=== PATIENT | male | born 1935 | race Caucasian/White ===

== ENCOUNTER 2019-12-28 11:21 | Outpatient (CLI) | payer MEDICARE, OTHER, SELFPAY ==
--- NOTE | 2019-12-28 11:25 | CT_ITS ---
WS: [id number] CT ABDOMEN WITH CONTRAST HISTORY: LYMPHOMA Contiguous single phase 5 mm axial imaging performed to the abdomen. Oral contrast has been provided. Coronal and sagittal reformats are submitted. All CT scans at [facility] use at least on e of these dose optimization techniques: automated exposure control; mA and/or kV adjustment per tiffany ent size (includes targeted exams where dose is matched to clinical indication); or iterative reconst ruction. CONTRAST: Visipaque 320; 95 mL IV. DLP: 239.95 mGy.cm COMPARISON: 08/26/2019 and 03/10/2019 Lower thorax: Stable appearance of the pleural plaques and pleural-based nodules at the lung bases ov er multiple prior exams. Probably related to prior asbestos exposure. Heart size is normal. Liver: Liver is normal size. Surface of the liver is very mildly irregular. Gallbladder: Normal. Pancreas: Normal. Spleen: Normal size spleen with a few granulomata. Adrenals: Normal. Right kidney: Normal size kidney with multiple cortical cysts. Largest cyst from the upper pole of th e maximum diameter of 2.9 cm. Left kidney: Normal size kidney. Multiple cortical cysts with the largest in the upper pole measuring 2.4 cm. Aorta: Moderate atherosclerosis aorta. No aneurysm. GI tract: As visualized there is no GI tract obstruction. Visualized: In the LEFT pelvis contains num erous diverticula. Central mesenteric mass is again identified just to the LEFT of midline and below the pancreas. This mass is slightly lobulated with mild enhancement measuring 4.7 x 3.7 x 2.0 cm. Very slightly decrease d in size since the prior examination. This mass is inseparable from several loops of small bowel but not resulting in obstruction. No new or enlarging masses. Abdominal wall: No hernia. Visualized osseous structures: Unremarkable. CT/CT abdomen w con* [id number] IMPRESSION: 1. Very slight decrease in size of the mesenteric mass in the LEFT abdomen now measuring 4.7 x 3.7 x 2.0 cm. No new or enlarging masses. 2. Bilateral renal cysts. 3. Moderate atherosclerosis aorta. 4. Stable pleural plaques and nodules.
[2019-12-28] MEDS: iohexol 300 mg/mL 50 mL Btl IV (11:52)
[2019-12-28 12:09] LABS: Basophils % 0.1 %; Hematocrit 42.6 % (42.0-52.0); Hemoglobin 13.7 g/dL (11.7-16.6); Lymphocytes # 0.7 10^3/uL (0.8-4.8); Lymphocytes % 7.5 %; Mean Corpuscular HGB Conc 32.2 g/dL (30.0-36.0); Mean Corpuscular Hemoglobin 31.1 pg (28.0-34.0); Mean Corpuscular Volume 96.6 fL (80-94); Mean Platelet Volume 9.8 fL (7.4-10.4); Monocytes # 0.1 10^3/uL (0.2-0.9); Monocytes % 0.9 %; Neutrophils # 8.63 10^3/uL (1.8-7.7); Neutrophils % 91.1 %; Nucleated Red Blood Cells % 0 %; Platelet Count 228 10^3/cmm (130-400); Red Blood Count 4.41 10^6/uL (4.1-5.3); Red Cell Distribution Width 12.6 % (12.1-15.1); White Blood Count 9.5 10^3/uL (4.0-10.0)
[2019-12-28 12:54] LABS: Alanine Aminotransferase 14 U/L (0-41); Albumin Level 4.6 g/dL (3.5-5.2); Alkaline Phosphatase 67 IU/L (40-130); Anion Gap 15.4 (5-19); Aspartate Amino Transferase 23 U/L (0-40); Blood Urea Nitrogen 19 mg/dL (8-23); Calcium 9.8 mg/dL (8.5-10.5); Carbon Dioxide 29 mmol/L (22-29); Chloride 100 mmol/L (98-107); Globulin 2.8 g/dL (1.3-4.6); Glucose 146 mg/dL (65-115); Lactate Dehydrogenase 215 U/L (135-225); Osmolality Calculated 295 mOsm/kg (285-295); Potassium 4.4 mmol/L (3.5-5.1); Sodium 140 mmol/L (136-145); Total Bilirubin 0.5 mg/dL (0.15-1.2); Total Protein 7.4 g/dL (6.6-8.7)
[2019-12-28] MEDS: iodixanol 320 mg/mL 100mL Btl IV (13:18)
== END 2019-12-28 11:22 | disposition home or self-care (01) ==
LOC: RAD 11:23
PROVIDERS: PCP Nurse Practitioner Family; Visit Provider Internal Medicine Hematology & Oncology
DX: C82.02 Follicular lymphoma grade I, intrathoracic lymph nodes (principal); R19.09 Other intra-abdominal and pelvic swelling, mass and lump; Q61.02 Congenital multiple renal cysts; I70.0 Atherosclerosis of aorta
CPT/HCPCS: 36415; 74160; 80053; 83615; 85025

== ENCOUNTER 2019-12-30 05:47 | Outpatient (CLI) | payer MEDICARE, OTHER, SELFPAY ==
--- NOTE | 2019-12-30 09:52 | ONC FU_ITS ---
Dr. Davis follow up note Patient: Austin Bai Unit #: [id number]: 1935 Dicatated By: Ryan Davis M.D.Date of Visit:Dec 30, 2019 Onc Med Follow-up/Prog Note History of Present Illness: This is an 84-year-old man with relapsed grade 1 follicular lymphoma, kappa subtype, stage IIIA with intermediate FLIPI score. He also has oligoclonal gammopathy of lambda subtype. He was found to have a polyclonal gammopathy with three different lambda restricted M -proteins. On 02/05/11 he had IgA lambda 0.14 g/dL, IgM lambda 0.14 g/dL, and IgG lambda 0.08 g/dL. Free kappa lambda ratio was 0.55. Quantitative IgA was 505, IgG 867 and IgM 230. Clinically he had an orthostatic hypotension, in the absence of clinical symptoms of hypovolemia. Echocardiogram showed no evidence of cardiomegaly or infiltrative cardiomyopathy. He had no bone pain. Metastatic bone survey on 02/19/11 showed possible lytic lesions in the right proximal femur and the left proximal humerus, he has established care with orthopedic surgeons. An MRI of the spine on 02/27/11 showed no evidence of plasmacytoma, although he had significant spinal stenosis with cord impingement, with resultant paresthesias in the legs. Bone marrow biopsy on 03/25/11 showed no increase in plasma cells, and no B-cell abberancy by flow. It was hypocellular at 20%, with adequate iron stores and no dyspoiesis. PET/CT on 04/11/11 however showed left supraclavicular lymphadenopathy measuring up to 1.8 cm MCV 2.9 as well as mesenteric lymphadenopathy up to 2 cm SUV of 4.8. He had no metastatic bone lesions. On 04/16/11 had supraclavicular lymphadenectomy. Pathology revealed grade 1 follicular lymphoma. Flow cytometry showed 40-50% cells positive for CD20, CD10 and negative for CD5. Surprisingly, his lymphoma was kappa light chain restricted. LDH 143, FLIPI score 2, intermediate. A follow up PET/CT 10/10/11 showed resolution of supraclavicular lymphadenopathy and reactive lymph nodes in the mediastinum. He had lymph nodes in the mesentery increased up to 2.3 cm SUV 4. A repeat CT on 04/26/12 with further increase of mesenteric nodes up to 3 cm. The patient received 4 weekly doses of Rituximab 375 mg/m2 from 05/04/12 to 05/25/12. The restaging CT of the chest abdomen and pelvis on 07/05/12 showed moderate interval improvement in mesenteric lymphadenopathy in size and number since April of 2012. The largest lymph node decreased down to 2.[address] of the chest abdomen and pelvis on 01/03/2015 showed increased central mesenteric lymph node enlargement compared to the previous study in December 2013. There was gastric wall thickening that could be due to poor oral contrast distention. On 04/06/2015 he underwent endoscopy that revealed significant gastritis and duodenitis. He began on proton pump inhibitors. In interim patient continued to lose weight. He had a follow-up visit with Dr. Armas on 04/12/2015. He then had restaging CT scans on 04/18/2015. Those studies showed further increase in left central mesenteric lymphadenopathy and stable mucosal thickening involving the fundus of the stomach. With the continued weight loss and CT evidence of further disease progression, it was opted to retreat him with a standard 4 week course of rituximab, which he completed from 04/23/2015 thru 05/16/2015. He tolerated the treatment well. His other medical illnesses include hypertension, dyslipidemia, BPH, and rosacea. He has a remote history of peptic ulcer disease. His restaging CT on 07/12/2015 showed positive response with decrease in the nodes and with only minimal mesenteric lymphadenopathy. CT scan done on 09/26/2016 showed multiple subpleural nodules in the right middle lobe and right lower lobe posteriorly measuring up to 1 cm in diameter and stable from CT scan of chest done on 12/29/2013 CT scan of abdomen pelvis done on 09/26/2016 showed upper abdominal mesenteric lymph node to left of midline nor measures 1.8 cm compared to 1.4 cm on 07/12/2015. A new lymph node is in the mid abdominal mesentery to left of midline just inferior to above node and measures about 3.3 x 4.1 cm. Cholesterol for lymph nodes inferior to abnormal measures 2.3 x 4.4 cm compared to 2.4 x 3.8 cm on 07/12/2015 and these nodes are of increased density compared to the prior exam. And small amount of ascites. Follow-up CT scan of chest abdomen pelvis done on 03/10/2019 showed no evidence of recurrent or progressive disease in the chest. Again seen other ill-defined mesenteric nodules left mid abdominal with the largest lesion slightly increased in size compared to CT scan of abdomen done on 11/10/2017 and it measured 3 x 3.1 compared to 2.7 x 1.5 cm previously. This is a similar in appearance to previous but slightly larger. No new mesenteric masses or lymph node seen Gastric fundal thickening remained unchanged. And no inguinal lymphadenopathy. Follow-up CT scan of chest abdomen pelvis done on August 26, 2019 showed continued enlargement of previously described mesenteric mass in the mid left abdomen, now measuring 4.9 x 4.3 x 2.7 cm. This compares to 3.1 x 3.2 x 3.1 cm on the prior study. Suspicious for progressive neoplastic disease. There are additional smaller mesenteric lymph nodes which are unchanged. No evidence of disease progression within the chest. There is a very small amount of free fluid in the pelvis, Follow-up CT scan of abdomen pelvis done on December 28, 2019 showed very slight decrease in size of mesenteric mass in the left abdomen now measuring 4.7 x 3.7 x 2 cm compared to 4.9 x 4.3 x 2.7 cm on August 26, 2019 Came for follow-up, denies any specific complaints, no fever chills, no nausea or vomiting, no diarrhea constipation, no night sweats, no weight loss, no recurrent fever, no peripheral lymphadenopathy. As per patient since his last visit he had an episode of blood in his phlegm for which he went to see his primary care physician and was observed and no more episodes since then. Medications: B-12 1 (500 mcg) Tablet Oral daily on Every Other Day, B-6 1 Tablet (of 25 mg) Oral daily, Calcium + D 1 Tablet Oral daily, Cholecalciferol 1 (5000 Units) Tablet Oral daily on ,,,Sa,Oneill, Finasteride 1 (5 mg) Tablet Oral daily, Fish Oil 1000 mg - Take 2 Capsule Delayed Release Oral b.i.d., Iodine (Kelp) 1 (0.15 mg) Tablet Oral daily, lantanoprost .005% 1 (.005 %) Solution Ophthalmic daily, Levothyroxine Sodium 1 (25 mcg) Tablet Oral daily, Magnesium 1 (250 mg) Tablet Oral daily, Multivitamins 1 Tablet Oral daily, Timolol Maleate 1 (0.25 %) Solution Ophthalmic daily, Tumeric 1 (1000 mg) Tablet Oral t.i.d. Allergies: IODINE Review of Systems: Review of Systems is not available for this patient. Vital Signs: Performed on Dec 30, 2019 08:52 Height - 69.00 in Weight - 147.2 lbs (HIGH) BSA - 1.81 sq.m BMI - 21.74 Temperature - 98.3 F (LOW) Pulse - 71 /min Respiration - 20 /min BP - 204/92 mm(hg) (HIGH) O2 Sat - 97 % Pain - 0 Performance Status: 0 - Fully active, able to carry on all predisease activities without restrictions. (ECOG) Physical Examination: ENMT - No mouth sores, no thrush, no jaundice, Respiratory - Lungs are clear to auscultation, Cardiovascular - Regular rate and rhythm of heart, Abdomen - Soft, bowel sounds Present, Extremities - No visible edema. Lab/Imaging: Test performed on Aug 26, 2019 10:00 Sodium 138 mmol/L Potassium 4.3 mmol/L Chloride 101 mmol/L CO2 25 mmol/L Anion Gap 16.3 BUN 16 mg/dL Creatinine 1.0 mg/dL Cr Clearance (Est) 50.03 mL/min Glucose 172 mg/dL Calcium 9.8 mg/dL Protein, Total 7.0 g/dL Albumin 4.5 g/dL Globulin 2.5 g/dL Bilirubin, Total 0.5 mg/dL ALT (SGPT) 13 U/L AST (SGOT) 22 U/L Alkaline Phosphatase 60 IU/L WBC 7.4 10 3/uL RBC 4.37 10 6/uL HGB 13.4 g/dL HCT 44.0 % MCV 100.7 fL MCH 30.7 pg MCHC 30.5 g/dL RDW 12.5 % Platelet Count 204 10 3/cmm MPV 9.7 fL Neutrophils 6.7 10 3/uL Lymphocytes 0.6 10 3/uL Monocytes 0.1 10 3/uL Eosinophils 0.0 10 3/uL Basophils 0.0 10 3/uL Neutrophil % 90.7 % Lymphocyte % 8.0 % Monocyte % 0.8 % Eosinophil % 0.0 % Basophils % 0.1 % NRBC % 0 % Impression: 1. Patient with grade 1 follicular lymphoma, kappa subtype, stage IIIA with intermediate FLIPI score. He had objective response to previous treatment with single agent rituximab, completed in May 2012. 2. In February 2016 he was found to have evidence of relapse/progression with CT evidence of increasing mesenteric lymphadenopathy. He had associated weight loss, so that his disease did appear to be symptomatic. He completed a four-week course of single agent Rituxan from 04/17/2015 through 05/16/2015. He tolerated well. There was evidence of response by follow-up CT scan .Abdominal fullness and weight loss probably due to change in diet he is on gluten-free diet Problem with swallowing noticed on barium swallow study but normal with modified barium swallow CT scan done on 09/26/2016 shows evidence of disease progression compared to CT scan done on June 172015 History of polyclonal gammopathy with 3 different lambda restricted and proteins. CT PET done on 11/29/2016 showed ill-defined FDG avid left mesenteric adenopathy represented by 3.7 cm node with an SUV of 3.0 no sites of adenopathy outside of mesenteric CT scan of abdomen done on 11/10/2017 showed left mesenteric soft tissue masses, significantly decreased in size since 09/26/2016.these are ill-defined soft tissue mesenteric easuring 2.7 x 1.5 cm No new masses or nodules seen Bilateral subpleural nodule and calcification at the lung bases are stable, likely prior asbestos exposure. Bilateral renal masses some of them these are cysts and some may be complex cyst. Plan: Discussed with patient regarding his labs white blood count 9.5 hemoglobin 13.7 hematocrit 42.6 platelets 228,000 CMP within normal limits LDH 215 CT scan of abdomen pelvis done on December 28, 2019 showed stable mesenteric mass and left abdomen rather slightly smaller than seen on CT scan done in August 2019 and no new mass or lymphadenopathy. Patient has no B symptoms and now being observed, will continue to follow and return to clinic in 4 months with CBC CMP and LDH and patient was advised to call us in case he has any B symptoms like recurrent fevers or drenching night sweats or weight loss or any progressive abdominal fullness or peripheral lymphadenopathy. Signed By: Ryan Davis M.D. <<Signature on File>>
== END 2019-12-30 05:48 | disposition home or self-care (01) ==
LOC: ONCMED 05:49
PROVIDERS: PCP Nurse Practitioner Family; Visit Provider Internal Medicine Hematology & Oncology
DX: C82.02 Follicular lymphoma grade I, intrathoracic lymph nodes (principal); D89.0 Polyclonal hypergammaglobulinemia; Z92.22 Personal history of monoclonal drug therapy
CPT/HCPCS: G0463

== ENCOUNTER 2020-05-11 06:00 | Outpatient (CLI) | payer MEDICARE, OTHER, SELFPAY ==
--- NOTE | 2020-05-14 10:38 | ONC FU_ITS ---
Dr. Davis follow up note Patient: Austin Bai Unit #: [id number]: [id number] Dicatated By: Ryan Davis M.D.Date of Visit:May 11, 2020 Onc Med Follow-up/Prog Note History of Present Illness: This is an 85-year-old man with relapsed grade 1 follicular lymphoma, kappa subtype, stage IIIA with intermediate FLIPI score. He also has oligoclonal gammopathy of lambda subtype. He was found to have a polyclonal gammopathy with three different lambda restricted M -proteins. On 02/05/11 he had IgA lambda 0.14 g/dL, IgM lambda 0.14 g/dL, and IgG lambda 0.08 g/dL. Free kappa lambda ratio was 0.55. Quantitative IgA was 505, IgG 867 and IgM 230. Clinically he had an orthostatic hypotension, in the absence of clinical symptoms of hypovolemia. Echocardiogram showed no evidence of cardiomegaly or infiltrative cardiomyopathy. He had no bone pain. Metastatic bone survey on 02/19/11 showed possible lytic lesions in the right proximal femur and the left proximal humerus, he has established care with orthopedic surgeons. An MRI of the spine on 02/27/11 showed no evidence of plasmacytoma, although he had significant spinal stenosis with cord impingement, with resultant paresthesias in the legs. Bone marrow biopsy on 03/25/11 showed no increase in plasma cells, and no B-cell abberancy by flow. It was hypocellular at 20%, with adequate iron stores and no dyspoiesis. PET/CT on 04/11/11 however showed left supraclavicular lymphadenopathy measuring up to 1.8 cm MCV 2.9 as well as mesenteric lymphadenopathy up to 2 cm SUV of 4.8. He had no metastatic bone lesions. On 04/16/11 had supraclavicular lymphadenectomy. Pathology revealed grade 1 follicular lymphoma. Flow cytometry showed 40-50% cells positive for CD20, CD10 and negative for CD5. Surprisingly, his lymphoma was kappa light chain restricted. LDH 143, FLIPI score 2, intermediate. A follow up PET/CT 10/10/11 showed resolution of supraclavicular lymphadenopathy and reactive lymph nodes in the mediastinum. He had lymph nodes in the mesentery increased up to 2.3 cm SUV 4. A repeat CT on 04/26/12 with further increase of mesenteric nodes up to 3 cm. The patient received 4 weekly doses of Rituximab 375 mg/m2 from 05/04/12 to 05/25/12. The restaging CT of the chest abdomen and pelvis on 07/05/12 showed moderate interval improvement in mesenteric lymphadenopathy in size and number since April of 2012. The largest lymph node decreased down to 2.[address] of the chest abdomen and pelvis on 01/03/2015 showed increased central mesenteric lymph node enlargement compared to the previous study in December 2013. There was gastric wall thickening that could be due to poor oral contrast distention. On 04/06/2015 he underwent endoscopy that revealed significant gastritis and duodenitis. He began on proton pump inhibitors. In interim patient continued to lose weight. He had a follow-up visit with Dr. Armas on 04/12/2015. He then had restaging CT scans on 04/18/2015. Those studies showed further increase in left central mesenteric lymphadenopathy and stable mucosal thickening involving the fundus of the stomach. With the continued weight loss and CT evidence of further disease progression, it was opted to retreat him with a standard 4 week course of rituximab, which he completed from 04/23/2015 thru 05/16/2015. He tolerated the treatment well. His other medical illnesses include hypertension, dyslipidemia, BPH, and rosacea. He has a remote history of peptic ulcer disease. His restaging CT on 07/12/2015 showed positive response with decrease in the nodes and with only minimal mesenteric lymphadenopathy. CT scan done on 09/26/2016 showed multiple subpleural nodules in the right middle lobe and right lower lobe posteriorly measuring up to 1 cm in diameter and stable from CT scan of chest done on 12/29/2013 CT scan of abdomen pelvis done on 09/26/2016 showed upper abdominal mesenteric lymph node to left of midline nor measures 1.8 cm compared to 1.4 cm on 07/12/2015. A new lymph node is in the mid abdominal mesentery to left of midline just inferior to above node and measures about 3.3 x 4.1 cm. Cholesterol for lymph nodes inferior to abnormal measures 2.3 x 4.4 cm compared to 2.4 x 3.8 cm on 07/12/2015 and these nodes are of increased density compared to the prior exam. And small amount of ascites. Follow-up CT scan of chest abdomen pelvis done on 03/10/2019 showed no evidence of recurrent or progressive disease in the chest. Again seen other ill-defined mesenteric nodules left mid abdominal with the largest lesion slightly increased in size compared to CT scan of abdomen done on 11/10/2017 and it measured 3 x 3.1 compared to 2.7 x 1.5 cm previously. This is a similar in appearance to previous but slightly larger. No new mesenteric masses or lymph node seen Gastric fundal thickening remained unchanged. And no inguinal lymphadenopathy. Follow-up CT scan of chest abdomen pelvis done on August 26, 2019 showed continued enlargement of previously described mesenteric mass in the mid left abdomen, now measuring 4.9 x 4.3 x 2.7 cm. This compares to 3.1 x 3.2 x 3.1 cm on the prior study. Suspicious for progressive neoplastic disease. There are additional smaller mesenteric lymph nodes which are unchanged. No evidence of disease progression within the chest. There is a very small amount of free fluid in the pelvis, Follow-up CT scan of abdomen pelvis done on December 28, 2019 showed very slight decrease in size of mesenteric mass in the left abdomen now measuring 4.7 x 3.7 x 2 cm compared to 4.9 x 4.3 x 2.7 cm on August 26, 2019 Came for follow-up, denies any specific complaints, no fever chills, no nausea or vomiting, no diarrhea or constipation, no night sweats, no recurrent fever but weight loss due to diet modification due to high cholesterol level otherwise denies any peripheral lymphadenopathy denies any abdominal fullness Medications: B-12 1 (500 mcg) Tablet Oral daily on Every Other Day, B-6 1 Tablet (of 25 mg) Oral daily, Calcium + D 1 Tablet Oral daily, Cholecalciferol 1 (5000 Units) Tablet Oral daily on M,W,Th,Sa,Oneill, Finasteride 1 (5 mg) Tablet Oral daily, Fish Oil 1000 mg - Take 2 Capsule Delayed Release Oral b.i.d., Iodine (Kelp) 1 (0.15 mg) Tablet Oral daily, lantanoprost .005% 1 (.005 %) Solution Ophthalmic daily, Levothyroxine Sodium 1 (25 mcg) Tablet Oral daily, Magnesium 1 (250 mg) Tablet Oral daily, Multivitamins 1 Tablet Oral daily, Timolol Maleate 1 (0.25 %) Solution Ophthalmic daily, Tumeric 1 (1000 mg) Tablet Oral t.i.d. Allergies: IODINE Review of Systems: Review of Systems is not available for this patient. Vital Signs: Performed on May 11, 2020 10:14 Height - 69.00 in Weight - 144.2 lbs (LOW) BSA - 1.80 sq.m BMI - 21.29 Temperature - 97.0 F (LOW) Pulse - 68 /min Respiration - 18 /min BP - 190/72 mm(hg) (HIGH) O2 Sat - 99 % Pain - 0 Performance Status: 1 - No physically strenuous activity, but ambulatory and able to carry out light or sedentary work (e.g. office work, light house work). (ECOG) Physical Examination: ENMT - No mouth sores, no thrush, no jaundice, No cervical lymphadenopathy, Respiratory - Lungs are clear to auscultation, Cardiovascular - Regular rate and rhythm of heart, Abdomen - Soft, bowel sounds present, Extremities - No visible edema. Lab/Imaging: Test performed on Mar 19, 2020 08:55 T4, Free 1.00 ng/dL TSH 1.590 uU/mL Cholesterol, Total 206 mg/dL Glucose 92 mg/dL BUN 14 mg/dL HDL Cholesterol 75 mg/dL Creatinine .94 mg/dL LDL Cholesterol 117 mg/dL Cr Clearance (Est) 53.27 mL/min Triglycerides 72 mg/dL Sodium 141 mmol/L Potassium 4.5 mmol/L Chloride 106 mmol/L CO2 33.3 mmol/L Calcium 9.3 mg/dL Protein, Total 7.3 g/dL Albumin 1.0 g/dL Bilirubin, Total .9 mg/dL Alkaline Phosphatase 62 IU/L AST (SGOT) 22 IU/L ALT (SGPT) 22 IU/L WBC 4.9 10^9/L RBC 4.37 10^12/L HGB 13.3 g/dL HCT 42.4 % MCV 97.0 fl MCH 30.4 pg MCHC 31.4 g/dL RDW 12.7 % Platelet Count 209 10^9/L MPV 10.2 fL Test performed on Dec 28, 2019 11:55 LDH (Total) 215 U/L Anion Gap 15.4 Osmolality - Calculated 295 mOsm/kg Globulin 2.8 g/dL Neutrophils 8.63 10 3/uL Lymphocytes 0.7 10 3/uL Monocytes 0.1 10 3/uL Eosinophils 0.0 10 3/uL Basophils 0.0 10 3/uL Neutrophil % 91.1 % Lymphocyte % 7.5 % Monocyte % 0.9 % Eosinophil % 0.0 % Basophils % 0.1 % NRBC % 0 % Impression: 1. Patient with grade 1 follicular lymphoma, kappa subtype, stage IIIA with intermediate FLIPI score. He had objective response to previous treatment with single agent rituximab, completed in May 2012. 2. In February 2016 he was found to have evidence of relapse/progression with CT evidence of increasing mesenteric lymphadenopathy. He had associated weight loss, so that his disease did appear to be symptomatic. He completed a four-week course of single agent Rituxan from 04/17/2015 through 05/16/2015. He tolerated well. There was evidence of response by follow-up CT scan .Abdominal fullness and weight loss probably due to change in diet he is on gluten-free diet Problem with swallowing noticed on barium swallow study but normal with modified barium swallow CT scan done on 09/26/2016 shows evidence of disease progression compared to CT scan done on June 172015 History of polyclonal gammopathy with 3 different lambda restricted and proteins. CT PET done on 11/29/2016 showed ill-defined FDG avid left mesenteric adenopathy represented by 3.7 cm node with an SUV of 3.0 no sites of adenopathy outside of mesenteric CT scan of abdomen done on 11/10/2017 showed left mesenteric soft tissue masses, significantly decreased in size since 09/26/2016.these are ill-defined soft tissue mesenteric easuring 2.7 x 1.5 cm No new masses or nodules seen Bilateral subpleural nodule and calcification at the lung bases are stable, likely prior asbestos exposure. Bilateral renal masses some of them these are cysts and some may be complex cyst. Plan: Discussed with patient regarding his labs white blood count 4.5 hemoglobin 12.9 hematocrit 40.6 platelets 163,000 CMP within normal limits LDH 175 Clinically, patient doing well with no new signs symptom including B symptoms suggestive of disease progression his follow-up lab is within normal range including LDH, on physical exam no evidence of significant peripheral lymphadenopathy or organomegaly, will continue to monitor and he will return to clinic in 6 months with CBC CMP and LDH, patient was advised in case he has any of the B symptoms or any peripheral lymphadenopathy or abdominal fullness he need to call us otherwise return to clinic in 6 months as mentioned above Signed By: Ryan Davis M.D. <<Signature on File>>
== END 2020-05-11 06:01 | disposition home or self-care (01) ==
LOC: ONCMED 06:03
PROVIDERS: PCP Nurse Practitioner Family; Visit Provider Internal Medicine Hematology & Oncology
DX: C82.02 Follicular lymphoma grade I, intrathoracic lymph nodes (principal)
CPT/HCPCS: 99214

== ENCOUNTER 2020-12-25 16:17 | Outpatient (CLI) | payer MEDICARE, OTHER, SELFPAY ==
--- NOTE | 2020-12-29 14:47 | ONC FU_ITS ---
Dr. Davis follow up note Patient: Austin Bai Unit #: [id number]: [id number] Dicatated By: Ryan Davis M.D.Date of Visit:Dec 25, 2020 Onc Med Follow-up/Prog Note History of Present Illness: This is an 85-year-old man with relapsed grade 1 follicular lymphoma, kappa subtype, stage IIIA with intermediate FLIPI score. He also has oligoclonal gammopathy of lambda subtype. He was found to have a polyclonal gammopathy with three different lambda restricted M -proteins. On 02/05/11 he had IgA lambda 0.14 g/dL, IgM lambda 0.14 g/dL, and IgG lambda 0.08 g/dL. Free kappa lambda ratio was 0.55. Quantitative IgA was 505, IgG 867 and IgM 230. Clinically he had an orthostatic hypotension, in the absence of clinical symptoms of hypovolemia. Echocardiogram showed no evidence of cardiomegaly or infiltrative cardiomyopathy. He had no bone pain. Metastatic bone survey on 02/19/11 showed possible lytic lesions in the right proximal femur and the left proximal humerus, he has established care with orthopedic surgeons. An MRI of the spine on 02/27/11 showed no evidence of plasmacytoma, although he had significant spinal stenosis with cord impingement, with resultant paresthesias in the legs. Bone marrow biopsy on 03/25/11 showed no increase in plasma cells, and no B-cell abberancy by flow. It was hypocellular at 20%, with adequate iron stores and no dyspoiesis. PET/CT on 04/11/11 however showed left supraclavicular lymphadenopathy measuring up to 1.8 cm MCV 2.9 as well as mesenteric lymphadenopathy up to 2 cm SUV of 4.8. He had no metastatic bone lesions. On 04/16/11 had supraclavicular lymphadenectomy. Pathology revealed grade 1 follicular lymphoma. Flow cytometry showed 40-50% cells positive for CD20, CD10 and negative for CD5. Surprisingly, his lymphoma was kappa light chain restricted. LDH 143, FLIPI score 2, intermediate. A follow up PET/CT 10/10/11 showed resolution of supraclavicular lymphadenopathy and reactive lymph nodes in the mediastinum. He had lymph nodes in the mesentery increased up to 2.3 cm SUV 4. A repeat CT on 04/26/12 with further increase of mesenteric nodes up to 3 cm. The patient received 4 weekly doses of Rituximab 375 mg/m2 from 05/04/12 to 05/25/12. The restaging CT of the chest abdomen and pelvis on 07/05/12 showed moderate interval improvement in mesenteric lymphadenopathy in size and number since April of 2012. The largest lymph node decreased down to 2.[address] of the chest abdomen and pelvis on 01/03/2015 showed increased central mesenteric lymph node enlargement compared to the previous study in December 2013. There was gastric wall thickening that could be due to poor oral contrast distention. On 04/06/2015 he underwent endoscopy that revealed significant gastritis and duodenitis. He began on proton pump inhibitors. In interim patient continued to lose weight. He had a follow-up visit with Dr. Armas on 04/12/2015. He then had restaging CT scans on 04/18/2015. Those studies showed further increase in left central mesenteric lymphadenopathy and stable mucosal thickening involving the fundus of the stomach. With the continued weight loss and CT evidence of further disease progression, it was opted to retreat him with a standard 4 week course of rituximab, which he completed from 04/23/2015 thru 05/16/2015. He tolerated the treatment well. His other medical illnesses include hypertension, dyslipidemia, BPH, and rosacea. He has a remote history of peptic ulcer disease. His restaging CT on 07/12/2015 showed positive response with decrease in the nodes and with only minimal mesenteric lymphadenopathy. CT scan done on 09/26/2016 showed multiple subpleural nodules in the right middle lobe and right lower lobe posteriorly measuring up to 1 cm in diameter and stable from CT scan of chest done on 12/29/2013 CT scan of abdomen pelvis done on 09/26/2016 showed upper abdominal mesenteric lymph node to left of midline nor measures 1.8 cm compared to 1.4 cm on 07/12/2015. A new lymph node is in the mid abdominal mesentery to left of midline just inferior to above node and measures about 3.3 x 4.1 cm. Cholesterol for lymph nodes inferior to abnormal measures 2.3 x 4.4 cm compared to 2.4 x 3.8 cm on 07/12/2015 and these nodes are of increased density compared to the prior exam. And small amount of ascites. Follow-up CT scan of chest abdomen pelvis done on 03/10/2019 showed no evidence of recurrent or progressive disease in the chest. Again seen other ill-defined mesenteric nodules left mid abdominal with the largest lesion slightly increased in size compared to CT scan of abdomen done on 11/10/2017 and it measured 3 x 3.1 compared to 2.7 x 1.5 cm previously. This is a similar in appearance to previous but slightly larger. No new mesenteric masses or lymph node seen Gastric fundal thickening remained unchanged. And no inguinal lymphadenopathy. Follow-up CT scan of chest abdomen pelvis done on August 26, 2019 showed continued enlargement of previously described mesenteric mass in the mid left abdomen, now measuring 4.9 x 4.3 x 2.7 cm. This compares to 3.1 x 3.2 x 3.1 cm on the prior study. Suspicious for progressive neoplastic disease. There are additional smaller mesenteric lymph nodes which are unchanged. No evidence of disease progression within the chest. There is a very small amount of free fluid in the pelvis, Follow-up CT scan of abdomen pelvis done on December 28, 2019 showed very slight decrease in size of mesenteric mass in the left abdomen now measuring 4.7 x 3.7 x 2 cm compared to 4.9 x 4.3 x 2.7 cm on August 26, 2019 CT scan of abdomen pelvis done on December 11, 2020, discussed with shows progressed mesenteric mass in the left midabdomen measuring 3.7 x 4 0 x 5.[address] scan abdomen pelvis done on December 28, 2019 showed this mass was 4.7 x 3.7 x 2 cm, While in the recent scan it says previously this measured 1.9 x 3.6 x 4.7 cm And suspicious left inguinal lymph node is new from previous measuring 1 x 1.5 cm Small amount of fluid attenuation along the right inguinal canal has progressed from prior examination Came for follow-up, denies any specific complaints,Off and on abdominal pain and fullness no night sweats, no fever no chills, no nausea or vomiting, no diarrhea or constipation, no peripheral lymphadenopathy, no recurrent fever, but weight loss, as per patient he has been watching his diet because of excessive gas, now he is avoiding dairy product Medications: B-12 1 (500 mcg) Tablet Oral daily on Every Other Day, B-6 1 Tablet (of 25 mg) Oral daily, Cholecalciferol 1 (5000 Units) Tablet Oral daily on ,,,,Oneill, Finasteride 1 (5 mg) Tablet Oral daily, Fish Oil 1000 mg - Take 2 Capsule Delayed Release Oral b.i.d., Iodine (Kelp) 1 (0.15 mg) Tablet Oral daily, Levothyroxine Sodium 1 (25 mcg) Tablet Oral daily, Magnesium 1 (250 mg) Tablet Oral daily, Multivitamins 1 Tablet Oral daily, Tumeric 1 (1000 mg) Tablet Oral t.i.d. Allergies: IODINE Review of Systems: Review of Systems is not available for this patient. Vital Signs: Performed on Dec 25, 2020 16:26 Height - 69.00 in Weight - 133.4 lbs (HIGH) BSA - 1.74 sq.m BMI - 19.70 Temperature - 97.6 F (LOW) Pulse - 87 /min Respiration - 15 /min BP - 185/73 mm(hg) (HIGH) O2 Sat - 98 % Pain - 0 Fatigue - 4 Performance Status: 0 - Fully active, able to carry on all predisease activities without restrictions. (ECOG) Physical Examination: ENMT - No mouth sores, no thrush, no jaundice no cervical lymphadenopathy or axillary lymphadenopathy, Respiratory - Lungs are clear to auscultation, Cardiovascular - Regular rate and rhythm of heart, Abdomen - Soft, bowel sounds present. Lab/Imaging: Most recent lab results are not available for this patient. Impression: 1. Patient with grade 1 follicular lymphoma, kappa subtype, stage IIIA with intermediate FLIPI score. He had objective response to previous treatment with single agent rituximab, completed in May 2012. 2. In February 2016 he was found to have evidence of relapse/progression with CT evidence of increasing mesenteric lymphadenopathy. He had associated weight loss, so that his disease did appear to be symptomatic. He completed a four-week course of single agent Rituxan from 04/17/2015 through 05/16/2015. He tolerated well. There was evidence of response by follow-up CT scan .Abdominal fullness and weight loss probably due to change in diet he is on gluten-free diet Problem with swallowing noticed on barium swallow study but normal with modified barium swallow CT scan done on 09/26/2016 shows evidence of disease progression compared to CT scan done on June 172015 History of polyclonal gammopathy with 3 different lambda restricted and proteins. CT PET done on 11/29/2016 showed ill-defined FDG avid left mesenteric adenopathy represented by 3.7 cm node with an SUV of 3.0 no sites of adenopathy outside of mesenteric CT scan of abdomen done on 11/10/2017 showed left mesenteric soft tissue masses, significantly decreased in size since 09/26/2016.these are ill-defined soft tissue mesenteric easuring 2.7 x 1.5 cm No new masses or nodules seen Bilateral subpleural nodule and calcification at the lung bases are stable, likely prior asbestos exposure. Bilateral renal masses some of them these are cysts and some may be complex cyst. Plan: Discussed with patient regarding his CT scan reports which showed stable left eccentric mesenteric soft tissue mass, but in the report radiologist mention progression but as mentioned in CT scan of abdomen pelvis scan from December 28, 2019 with no significant change in size, no obvious masses 3.7 x 4 x 5.5 cm compared to 4.7 x 3.7 x 2 cm on December 28, 2019, so we will discuss with radiologist regarding this discrepancy in the meantime we will refer him to Dr. Garner for GI evaluation as patient is having vague off-and-on abdominal pain and fullness which could be due to lymphomatous colon involvement and other concern is right inguinal canal fluid attenuation which could be hernia, evaluation Patient return to clinic after GI evaluation for further discussion Signed By: Ryan Davis M.D. <<Signature on File>>
== END 2020-12-25 16:18 | disposition home or self-care (01) ==
PROVIDERS: PCP Nurse Practitioner Family; Visit Provider Internal Medicine Hematology & Oncology
DX: C82.00 Follicular lymphoma grade I, unspecified site (principal); R63.4 Abnormal weight loss; K90.0 Celiac disease; R13.10 Dysphagia, unspecified; D89.0 Polyclonal hypergammaglobulinemia; Z79.899 Other long term (current) drug therapy; Z92.21 Personal history of antineoplastic chemotherapy
CPT/HCPCS: 99214

== ENCOUNTER → 2021-02-25 10:20 | Outpatient (BNVA) | payer MEDICARE, OTHER, SELFPAY | PROVIDERS: PCP Nurse Practitioner Family; Visit Provider Internal Medicine | DX: R63.4 Abnormal weight loss (principal); R10.11 Right upper quadrant pain; C82.92 Follicular lymphoma, unspecified, intrathoracic lymph nodes | CPT/HCPCS: 80053; 82607; 82746; 83550; 84443 ==

== ENCOUNTER 2021-03-25 07:03 | Day surgery (SDC) | payer MEDICARE, OTHER, SELFPAY ==
[2021-03-22 12:50] VITALS: BMI 15.9
--- NOTE | 2021-03-25 07:23 | ANES.PREANE2 ---
Pre-Anesthetic Assessment Pre-Anesthetic Assessment: Height/Weight: Height 1.75 m Weight 48.988 kg Preop Diagnosis: Abdominal pain Proposed Procedure: Operation Date: 03/25/21 08:15 Proposed Procedures p Sigmoidoscopy(Not Applicable) - Mark Garner MD Familial anesthetic complications: None Was Beta Jaron taken within 24 hours: N/A Was Clonidine taken within 24 hours: N/A Last intake: > 8 hrs Social: Social History: No alcohol and No tobacco Exam: Pre-Anes Outpt Exam: alert, oriented x 3, clear to auscultation bilaterally and regular rate & rhythm Airway: MP: 3 Dentition: False GI: GI: GERD Metabolic: Metabolic: Thyroid Comments: lymphoma, excess weight loss, now down to 107 lbs, frail appearing Anesthetic Plan: ASA status: 4 Anesthesia: MAC Risk of > 500 ml blood loss (7ml/kg in children): No Other Pertinent Information: patient was in ER over the weekend for severe dehydration, 1 L bolus received PFSH Anesthesia PFSH: Medical History Chronic back pain Diverticulosis Hx of cataract bilat eyes Lymphoma Weight loss Surgical History Hx of removal of cyst lumbar region Family History Denies family history of Anesthesia complication Data Anesthesia Cardiac Studies: No Data to Display
[2021-03-25 07:35] VITALS: BP 103/68; PULSE 103; RESP 20; O2SAT 93
[2021-03-25] MEDS: sodium chloride 0.9% 1,000 ML 30 ML IV (07:51)
--- NOTE | 2021-03-25 08:02 | W.PM.OPSUD ---
Surgery/Procedure H&P Update DATE OF PROCEDURE: March 25, 2021 DATE H&P PERFORMED: 03/18/21 H&P UPDATE INFORMATION: I have reviewed H&P completed within last 30 days, I have examined patient prior to procedure and No changes to prior documentation PREOP DIAGNOSIS: Sigmoid colon polyp with high-grade dysplasia PRIMARY INDICATION FOR PROCEDURE: The same PLANNED PROCEDURE: Operation Date: 03/25/21 08:15 Proposed Procedures p Sigmoidoscopy(Not Applicable) - Mark Garner MD
[2021-03-25 08:35] VITALS: BP 126/68; PULSE 71; RESP 16; TEMP 36.1; O2SAT 98
[2021-03-25 08:45] VITALS: BP 147/75; PULSE 72; RESP 19; O2SAT 97
--- NOTE | 2021-03-25 13:35 | PM.ACPR ---
Procedure/Consent Time out: Time Out Performed: Yes Consent: Consent for Procedure: Consent obtained from patient Procedure Narrative: Before starting the flex sigmoidoscopy and after patient was placed to sleep by the PAD MACHINE OPERATOR using IV propofol, and timeout was obtained. Digital rectal examination showed bulky soft brown stools and no masses were appreciated at this point the procedure was aborted due to the inadequate prep and we will plan to reschedule the patient at a later date. Circulating nurse Marilu GI nurse kaity Antunez PAD MACHINE OPERATOR Will Smart No immediate complication No specimens Estimated blood loss 0 Patient tolerated the procedure well I was present for the whole entire procedure Acute Procedures Epistaxis Control: Time out performed: Yes
== END 2021-03-25 09:22 | disposition home or self-care (01) ==
PROVIDERS: PCP Nurse Practitioner Family; Visit Provider Surgery
PROC: (CPT 45990; 2021-03-25 08:15)
DX: K63.5 Polyp of colon (principal); Z53.9 Procedure and treatment not carried out, unspecified reason; K21.9 Gastro-esophageal reflux disease without esophagitis
CPT/HCPCS: 45990; J7030

== ENCOUNTER 2021-03-26 13:02 | Outpatient (CLI) | payer MEDICARE, OTHER, SELFPAY ==
[2021-03-26 14:14] LABS: Basophils % 0.4 %; Eosinophils % 0.6 %; Hematocrit 39.4 % (42.0-52.0); Hemoglobin 12.7 g/dL (11.7-16.6); Lymphocytes # 0.8 10^3/uL (0.8-4.8); Lymphocytes % 15.5 %; Mean Corpuscular HGB Conc 32.2 g/dL (30.0-36.0); Mean Corpuscular Volume 96.1 fl (80-94); Monocytes # 0.5 10^3/uL (0.2-0.9); Monocytes % 9.4 %; Neutrophils # 3.61 10^3/uL (1.8-7.7); Neutrophils % 73.9 %; Nucleated Red Blood Cells % 0 %; Platelet Count 239 10^3/cmm (130-400); Red Cell Distribution Width 12.9 % (12.1-15.1); White Blood Count 4.9 10^3/uL (4.0-10.0)
[2021-03-26 14:37] LABS: Alanine Aminotransferase 13 U/L (0-41); Albumin Level 4.1 g/dL (3.5-5.2); Alkaline Phosphatase 73 IU/L (40-130); Anion Gap 13.2 (5-19); Aspartate Amino Transferase 28 U/L (0-40); Blood Urea Nitrogen 21 mg/dL (8-23); Calcium 13.4 mg/dL (8.5-10.5); Carbon Dioxide 36 mmol/L (22-29); Chloride 97 mmol/L (98-107); Globulin 2.6 g/dL (1.3-4.6); Glucose 100 mg/dL (65-115); Lactate Dehydrogenase 342 U/L (135-225); Osmolality Calculated 299 mOsm/kg (285-295); Potassium 3.2 mmol/L (3.5-5.1); Sodium 143 mmol/L (136-145); Total Bilirubin 0.7 mg/dL (0.15-1.2); Total Protein 6.7 g/dL (6.6-8.7)
--- NOTE | 2021-03-26 16:23 | ONC FU_ITS ---
Dr. Davis follow up note Patient: Austin Bai Unit #: [id number]: [id number] Dicatated By: Ryan Davis M.D.Date of Visit:Mar 26, 2021 Onc Med Follow-up/Prog Note History of Present Illness: This is an 85-year-old man with relapsed grade 1 follicular lymphoma, kappa subtype, stage IIIA with intermediate FLIPI score. He also has oligoclonal gammopathy of lambda subtype. He was found to have a polyclonal gammopathy with three different lambda restricted M -proteins. On 02/05/11 he had IgA lambda 0.14 g/dL, IgM lambda 0.14 g/dL, and IgG lambda 0.08 g/dL. Free kappa lambda ratio was 0.55. Quantitative IgA was 505, IgG 867 and IgM 230. Clinically he had an orthostatic hypotension, in the absence of clinical symptoms of hypovolemia. Echocardiogram showed no evidence of cardiomegaly or infiltrative cardiomyopathy. He had no bone pain. Metastatic bone survey on 02/19/11 showed possible lytic lesions in the right proximal femur and the left proximal humerus, he has established care with orthopedic surgeons. An MRI of the spine on 02/27/11 showed no evidence of plasmacytoma, although he had significant spinal stenosis with cord impingement, with resultant paresthesias in the legs. Bone marrow biopsy on 03/25/11 showed no increase in plasma cells, and no B-cell abberancy by flow. It was hypocellular at 20%, with adequate iron stores and no dyspoiesis. PET/CT on 04/11/11 however showed left supraclavicular lymphadenopathy measuring up to 1.8 cm MCV 2.9 as well as mesenteric lymphadenopathy up to 2 cm SUV of 4.8. He had no metastatic bone lesions. On 04/16/11 had supraclavicular lymphadenectomy. Pathology revealed grade 1 follicular lymphoma. Flow cytometry showed 40-50% cells positive for CD20, CD10 and negative for CD5. Surprisingly, his lymphoma was kappa light chain restricted. LDH 143, FLIPI score 2, intermediate. A follow up PET/CT 10/10/11 showed resolution of supraclavicular lymphadenopathy and reactive lymph nodes in the mediastinum. He had lymph nodes in the mesentery increased up to 2.3 cm SUV 4. A repeat CT on 04/26/12 with further increase of mesenteric nodes up to 3 cm. The patient received 4 weekly doses of Rituximab 375 mg/m2 from 05/04/12 to 05/25/12. The restaging CT of the chest abdomen and pelvis on 07/05/12 showed moderate interval improvement in mesenteric lymphadenopathy in size and number since April of 2012. The largest lymph node decreased down to 2.[address] of the chest abdomen and pelvis on 01/03/2015 showed increased central mesenteric lymph node enlargement compared to the previous study in December 2013. There was gastric wall thickening that could be due to poor oral contrast distention. On 04/06/2015 he underwent endoscopy that revealed significant gastritis and duodenitis. He began on proton pump inhibitors. In interim patient continued to lose weight. He had a follow-up visit with Dr. Armas on 04/12/2015. He then had restaging CT scans on 04/18/2015. Those studies showed further increase in left central mesenteric lymphadenopathy and stable mucosal thickening involving the fundus of the stomach. With the continued weight loss and CT evidence of further disease progression, it was opted to retreat him with a standard 4 week course of rituximab, which he completed from 04/23/2015 thru 05/16/2015. He tolerated the treatment well. His other medical illnesses include hypertension, dyslipidemia, BPH, and rosacea. He has a remote history of peptic ulcer disease. His restaging CT on 07/12/2015 showed positive response with decrease in the nodes and with only minimal mesenteric lymphadenopathy. CT scan done on 09/26/2016 showed multiple subpleural nodules in the right middle lobe and right lower lobe posteriorly measuring up to 1 cm in diameter and stable from CT scan of chest done on 12/29/2013 CT scan of abdomen pelvis done on 09/26/2016 showed upper abdominal mesenteric lymph node to left of midline nor measures 1.8 cm compared to 1.4 cm on 07/12/2015. A new lymph node is in the mid abdominal mesentery to left of midline just inferior to above node and measures about 3.3 x 4.1 cm. Cholesterol for lymph nodes inferior to abnormal measures 2.3 x 4.4 cm compared to 2.4 x 3.8 cm on 07/12/2015 and these nodes are of increased density compared to the prior exam. And small amount of ascites. Follow-up CT scan of chest abdomen pelvis done on 03/10/2019 showed no evidence of recurrent or progressive disease in the chest. Again seen other ill-defined mesenteric nodules left mid abdominal with the largest lesion slightly increased in size compared to CT scan of abdomen done on 11/10/2017 and it measured 3 x 3.1 compared to 2.7 x 1.5 cm previously. This is a similar in appearance to previous but slightly larger. No new mesenteric masses or lymph node seen Gastric fundal thickening remained unchanged. And no inguinal lymphadenopathy. Follow-up CT scan of chest abdomen pelvis done on August 26, 2019 showed continued enlargement of previously described mesenteric mass in the mid left abdomen, now measuring 4.9 x 4.3 x 2.7 cm. This compares to 3.1 x 3.2 x 3.1 cm on the prior study. Suspicious for progressive neoplastic disease. There are additional smaller mesenteric lymph nodes which are unchanged. No evidence of disease progression within the chest. There is a very small amount of free fluid in the pelvis, Follow-up CT scan of abdomen pelvis done on December 28, 2019 showed very slight decrease in size of mesenteric mass in the left abdomen now measuring 4.7 x 3.7 x 2 cm compared to 4.9 x 4.3 x 2.7 cm on August 26, 2019 CT scan of abdomen pelvis done on December 11, 2020, discussed with shows progressed mesenteric mass in the left midabdomen measuring 3.7 x 4 0 x 5.[address] scan abdomen pelvis done on December 28, 2019 showed this mass was 4.7 x 3.7 x 2 cm, While in the recent scan it says previously this measured 1.9 x 3.6 x 4.7 cm And suspicious left inguinal lymph node is new from previous measuring 1 x 1.5 cm Small amount of fluid attenuation along the right inguinal canal has progressed from prior examination Came for follow-up, complaining of excessive sleep, generalized weakness and fatigue, constipation, epigastric pain/discomfort, as per patient symptoms are progressive since colonoscopy done around , as per patient colonoscopy was not completed so he underwent barium enema on February 08, 2021 which shows tortuous overlapping loops of colon. No high-grade stricture or mucosal lesions identified. Descending and sigmoid diverticulosis. Large diverticulum from mesenteric surface of the ascending colon. As per patient he went to [facility] on March 22, 2021, with similar symptoms and he was sent home as no bed was available. Now because of poor appetite, and constipation and generalized weakness and fatigue, patient not eating well and losing significant weight but denies any night sweats, denies any recurrent fever, denies any dysuria, denies any jaundice. His epigastric pain is again noncolicky type no aggravating or relieving factor except as per patient laying down improves his epigastric discomfort. Medications: B-12 1 (500 mcg) Tablet Oral daily on Every Other Day, B-6 1 Tablet (of 25 mg) Oral daily, Cholecalciferol 1 (5000 Units) Tablet Oral daily on ,,,,Oneill, Finasteride 1 (5 mg) Tablet Oral daily, Fish Oil 1000 mg - Take 2 Capsule Delayed Release Oral b.i.d., Iodine (Kelp) 1 (0.15 mg) Tablet Oral daily, Levothyroxine Sodium 1 (25 mcg) Tablet Oral daily, Magnesium 1 (250 mg) Tablet Oral daily, Multivitamins 1 Tablet Oral daily, Tumeric 1 (1000 mg) Tablet Oral t.i.d. Allergies: IODINE Review of Systems: Review of Systems is not available for this patient. Vital Signs: Performed on Mar 26, 2021 15:19 Height - 69.00 in Weight - 107.2 lbs (LOW) BSA - 1.58 sq.m BMI - 15.83 (LOW) Temperature - 97.6 F (LOW) Pulse - 96 /min Respiration - 18 /min BP - 113/75 mm(hg) O2 Sat - 98 % Pain - 8 Fatigue - 8 Performance Status: 3 - Capable of only limited self-care, confined to bed or chair more than 50% of waking hours. (ECOG) Physical Examination: ENMT - Dry oral mucosa, no mucositis, no thrush, no jaundice, Respiratory - Lungs are clear to auscultation, Cardiovascular - Regular rate and rhythm of heart, Abdomen - Soft, bowel sounds present, Extremities - No visible edema. Lab/Imaging: Most recent lab results are not available for this patient. Impression: 1. Patient with grade 1 follicular lymphoma, kappa subtype, stage IIIA with intermediate FLIPI score. He had objective response to previous treatment with single agent rituximab, completed in May 2012. 2. In February 2016 he was found to have evidence of relapse/progression with CT evidence of increasing mesenteric lymphadenopathy. He had associated weight loss, so that his disease did appear to be symptomatic. He completed a four-week course of single agent Rituxan from 04/17/2015 through 05/16/2015. He tolerated well. There was evidence of response by follow-up CT scan .Abdominal fullness and weight loss probably due to change in diet he is on gluten-free diet Problem with swallowing noticed on barium swallow study but normal with modified barium swallow CT scan done on 09/26/2016 shows evidence of disease progression compared to CT scan done on June 172015 History of polyclonal gammopathy with 3 different lambda restricted and proteins. CT PET done on 11/29/2016 showed ill-defined FDG avid left mesenteric adenopathy represented by 3.7 cm node with an SUV of 3.0 no sites of adenopathy outside of mesenteric CT scan of abdomen done on 11/10/2017 showed left mesenteric soft tissue masses, significantly decreased in size since 09/26/2016.these are ill-defined soft tissue mesenteric easuring 2.7 x 1.5 cm No new masses or nodules seen Bilateral subpleural nodule and calcification at the lung bases are stable, likely prior asbestos exposure. Bilateral renal masses some of them these are cysts and some may be complex cyst. Plan: Discussed with patient regarding his labs white blood count 4.9 hemoglobin 12.7 hematocrit 39.4 platelets 239 CMP within normal limit except potassium 3.2 creatinine 1.5 compared to 1.2 previously calcium 13.4 compared to 11.1 on December 05, 2020 and his EGD done on January 25, 2021 showed reflux esophagitis GERD colonoscopy was not completed but barium enema shows no mucosal lesion or stricture. Clinically, patient in mild to moderate distress due to generalized weakness and fatigue, constant weight loss, poor appetite, excessive sleeping, his lab work-up shows hypercalcemia and his symptoms are probably related to hypercalcemia, he may have underlying infection too. At this point, we will send him to [facility] ER for evaluation and possible inpatient care, case was discussed with the ER physician, patient will need work-up for hypercalcemia and inpatient management. Etiology of hypercalcemia could be due to hyperparathyroidism or could be due to progressive follicular lymphoma, once hypercalcemia and dehydration resolves, will consider repeat CT scan of abdomen and compare, if there is a disease progression, will consider CT PET scan to rule out transformation into high-grade lymphoma and plan accordingly. Signed By: Ryan Davis M.D. <<Signature on File>>
== END 2021-03-26 13:03 | disposition home or self-care (01) ==
LOC: ONCMED 13:09
PROVIDERS: PCP Nurse Practitioner Family; Visit Provider Internal Medicine Hematology & Oncology
DX: C82.08 Follicular lymphoma grade I, lymph nodes of multiple sites (principal); I10 Essential (primary) hypertension; E78.5 Hyperlipidemia, unspecified; N40.0 Benign prostatic hyperplasia without lower urinary tract symptoms; L71.9 Rosacea, unspecified; K27.9 Peptic ulcer, site unspecified, unspecified as acute or chronic, without hemorrhage or perforation; Z79.899 Other long term (current) drug therapy
CPT/HCPCS: 36415; 80053; 83615; 85025; 99215

== ENCOUNTER → 2021-06-13 13:29 | Outpatient (BNVA) | payer MEDICARE, OTHER, SELFPAY | PROVIDERS: PCP Nurse Practitioner Family; Visit Provider Nurse Practitioner Family | DX: L97.512 Non-pressure chronic ulcer of other part of right foot with fat layer exposed (principal); I96 Gangrene, not elsewhere classified; L97.522 Non-pressure chronic ulcer of other part of left foot with fat layer exposed; L97.812 Non-pressure chronic ulcer of other part of right lower leg with fat layer exposed | CPT/HCPCS: 11042; 11045; 87070; 87077; 87176; 87186; 87205 ==

== ENCOUNTER → 2021-06-25 11:28 | Outpatient (BNVA) | payer MEDICARE, OTHER, SELFPAY | PROVIDERS: PCP Nurse Practitioner Family; Visit Provider Internal Medicine Hematology & Oncology | DX: C85.90 Non-Hodgkin lymphoma, unspecified, unspecified site (principal) | CPT/HCPCS: 80053; 83615; 83735; 85025 ==